=== PATIENT | female | born 1990 | race Caucasian/White ===

== ENCOUNTER → 2020-03-09 | Outpatient (CLI) | payer BC, MEDICAID ==
[~2020-03-09] MED LIST: AMOX400T12; METR500T PO; RNT150T PO; SULF1TAB38 PO; TRAM50TA2
--- NOTE | 2020-03-09 12:30 | Diagnostic Imaging Report ---
INDICATION: . TECHNIQUE: Multiple real-time grayscale images were obtained over the gravid uterus. COMPARISON: There are no prior studies available for comparison. FINDINGS: There is a single live fetus in breech presentation. heart motion was noted and a rate of 144 BPM was recorded. There were no abnormalities identified. The growth parameters are fairly uniform. The amniotic fluid volume is within normal limits. The placenta is posterior and there is a complete previa. The cervix was identified and measures 7.4 cm in length. Neither ovary was well visualized. Biometrical measurements are as follows: Biparietal 4.02 cm, age 18 weeks 2 days. Head circumference 15.22 cm, age 18 weeks 2 days. Abdominal circumference 13.10 cm, age 18 weeks 5 days. Femur length 2.71 cm, age 18 weeks 2 days. Sonographic estimate age: 18 weeks 3 days. Sonographic estimated date of delivery: 08/07/2020. Estimated Weight: 239 gm (+/- 35 gm). LMP percentile: 54%. heart rate: 144 beats per minute. number: 1 of 1. IMPRESSION: 1. There is a single live fetus of approximately 18 weeks 3 days gestation +/-1.5 weeks. The EDC is August 07, 2020. 2. There were no abnormalities identified. 3. The growth parameters are fairly uniform. 4. There is complete posterior placenta previa. A follow-up exam in four to six weeks would be recommended for further evaluation of the position of the placenta. Dictated by: Dictated on workstation # [id number]
== END ==
LOC: RAD 10:00
PROVIDERS: ATTEND Nurse Practitioner Women's Health
DX: Z34.92 Encounter for supervision of normal pregnancy, unspecified, second trimester (principal); Z3A.18 18 weeks gestation of pregnancy
CPT/HCPCS: 76805